=== PATIENT | female | born 1955 | race African-American/Black ===

== ENCOUNTER 2017-03-02 08:44 | Outpatient (CLI) | payer OTHER ==
--- NOTE | 2017-03-02 10:02 | ULT ---
RIGHT UPPER QUADRANT ULTRASOUND: Date: 03/02/17 HISTORY: Epigastric pain. FINDINGS: The liver demonstrates normal echogenicity consistent without mass or biliary ductal dilatation. No g allstones, gallbladder wall thickening, or pericholecystic fluid is seen. The common duct measures 5. 0 mm in diameter. The pancreas and right kidney appear normal. No free fluid is seen in Morison's danny ch. IMPRESSION: Normal exam. POS: [facility]
--- NOTE | 2017-03-02 11:13 | CT ---
CT ABDOMEN AND PELVIS WITH CONTRAST: Date: 03/02/17 HISTORY: Epigastric pain. COMPARISON: Ultrasound from same date. FINDINGS: There are mild atelectatic changes in the lung bases. No pericardial effusion. No dilated loops of large or small bowel. Streak artifact limits evaluation of the lower abdomen. Aortoiliac contour is normal. No hydronephrosis. The liver and gallbladder are unremarkable. Too smal l to characterize hypodensities superior pole left kidney. Spleen is unremarkable, as well as the mcadams creas. No peripancreatic fluid. There is extensive diverticular disease of the sigmoid colon without active inflammation. There are m ildly distended right-sided gonadal veins. Appendix is visualized and is normal. Severe degenerative disease of the right hip joint with subchondral formation, as well as a subchondr al fracture of the right femoral head with impaction and lucency around the fracture suggesting that this fracture is unstable. Posterior spinal fusion L3-L5. IMPRESSION: 1. No acute inflammatory process in abdomen or pelvis. 2. Normal appendix. 3. Severe degenerative disease of the right hip with a subchondral fracture of the right femoral hea d, with resorption around the fracture line and likely fluid suggesting this fracture may be unstabl e. Orthopedic consultation is recommended. POS: [facility]
[2017-03-02] MEDS ORDERED: Iopamidol 370 76% 100 ML VIAL ONE (12:21)
== END 2017-03-02 08:45 | disposition home or self-care (01) ==
LOC: CT 08:44
PROVIDERS: ATTEND Specialist
DX: R10.13 Epigastric pain (principal); M16.11 Unilateral primary osteoarthritis, right hip; S72.051A Unspecified fracture of head of right femur, initial encounter for closed fracture
CPT/HCPCS: 36415; 74177; 76705; 82565

== ENCOUNTER 2017-05-16 12:09 | Outpatient (CLI) | payer OTHER ==
[2017-05-16 13:53] LABS: #Eosinphils 0.1 thou/uL (0.0-0.7); #Lymphocytes 2.1 thou/uL (1.20-3.40); #Monocytes 0.8 thou/uL (0.11-0.59); %Basophils 0.3 % (0.0-1.0); %Eosinophils 1.5 % (0.0-10.0); %Lymphocytes 25.7 % (21.0-51.0); %Monocytes 10.4 % (0.0-10.0); %Neutrophils 62.1 % (42.0-75.0); Hemoglobin 13.9 g/dL (12.0-16.0); Mean Corpuscular HGB CONC 32.2 g/dL (32.0-36.0); Mean Corpuscular Hemoglobin 27.9 pg (27.0-31.0); Mean Corpuscular Volume 86.6 fl (81.0-99.0); Mean Platelet Volume 7.6 fL (7.4-10.4); Platelet Count 323 thou/uL (130-400); RBC Distribution Width 13.8 % (11.5-14.5); Red Blood Cell (RBC) Count 4.98 mill/uL (4.20-5.40); White Blood Cell (WBC) Count 8.1 thou/uL (4.8-10.8)
[2017-05-16 13:55] LABS: Bilirubin Negative (Negative); Blood, Urine Negative (Negative); Clarity CLOUDY (Clear); Glucose, Urine (Dipstick) Negative (Negative); Leukocyte Small (Negative); Nitrite Negative (Negative); Protein, Urine (Dipstick) Trace mg/dL (Neg-Trace); Specific Gravity, Urine 1.033 (1.002-1.036)
[2017-05-16 13:57] LABS: Bacteria/HPF 3+ HPF (None Seen); Hyaline Casts/LPF 7-10 HYALINE CAST LPF (0-3 Hyaline); Squamous Epithelial 21-50 HPF (0-3); WBC/HPF 21-50 HPF (0-3)
[2017-05-16 13:58] LABS: INR-International Normal Ratio 1.1; PTT 33.2 SEC (22.9-36.1); Prothrombin Time 13.9 SEC (12.0-14.7)
--- NOTE | 2017-05-16 14:02 | RAD ---
2 VIEW CHEST: Date: 05/16/17 HISTORY: Preoperative evaluation. FINDINGS: Lung humphrey are clear. No infiltrate. Heart and mediastinum unremarkable. Osseous structures are unre markable. IMPRESSION: No acute findings. POS: [facility]
[2017-05-16 14:06] LABS: RBC/HPF None Seen HPF (0-3)
[2017-05-16 14:17] LABS: Anion Gap 9 mmol/L (10-20); BUN (Urea Nitrogen) 14 mg/dL (9.8-20.1); Calc. Creatinine Clearance 0 mL/min (70-130); Calcium 9.8 mg/dL (7.8-10.44); Carbon Dioxide 31 mmol/L (22-29); Chloride 99 mmol/L (98-107); Estimated GFR-MDRD 69; Glucose 136 mg/dL (70-105); Potassium 3.2 mmol/L (3.5-5.1); Sodium 136 mmol/L (136-145)
--- NOTE | 2017-05-18 17:36 | EKG ---
Test Reason : Blood Pressure : / mmHG Vent. Rate : 095 BPM Atrial Rate : 095 BPM P-R Int : 172 ms QRS Dur : 090 ms QT Int : 364 ms P-R-T Axes : 063 -20 049 degrees QTc Int : 457 ms Normal sinus rhythm Possible Inferior infarct , age undetermined Abnormal ECG When compared with ECG of 21-SEP-2007 06:49, Borderline criteria for Inferior infarct are now Present Confirmed by DR. Delgado PANTOJA ([id number]) on 05/18/2017 5:36:32 PM Referred By: RONNI Confirmed By:DR. Delgado PANTOJA
== END 2017-05-16 12:10 | disposition home or self-care (01) ==
LOC: LABBT 12:09
PROVIDERS: ATTEND Orthopaedic Surgery
DX: Z01.818 Encounter for other preprocedural examination (principal); M16.11 Unilateral primary osteoarthritis, right hip
CPT/HCPCS: 71046; 80048; 81001; 85025; 85610; 85730; 87081; 93005; 93010

== ENCOUNTER 2017-05-16 13:00 | Inpatient (IN) | payer OTHER ==
[2017-06-13] MEDS ORDERED: CEFAZOLIN/Water 2 GM/20 ML SYRINGE ONE (07:06)
[2017-06-13] MEDS ORDERED: Vancomycin HCl 1.5 GM, Admixture Fee 1 EACH in Sodium Chloride 0.9% 250 ML 300 ML IVPB SCH (07:15)
[2017-06-13] MEDS ORDERED: Midazolam HCl 2 mg/2 ml Vial ONE ×2 (07:31→09:02)
[2017-06-13] MEDS ORDERED: Fentanyl 100 MCG/2 ML VIAL ONE ×5 (07:31→11:17)
[2017-06-13] MEDS ORDERED: Fentanyl 100 MCG/2 ML VIAL SLOW IVP PRN ×2 (08:42)
[2017-06-13] MEDS ORDERED: traMADol HCl 50 MG TAB PO PRN (08:42)
[2017-06-13] MEDS ORDERED: diphenhydrAMINE 25 MG CAP PO PRN ×2 (08:42→11:13)
[2017-06-13] MEDS ORDERED: Ondansetron HCl/PF 4 MG/2 ML Vial IVP PRN ×3 (08:42→11:13)
[2017-06-13] MEDS ORDERED: Promethazine HCl 25 MG/ML VIAL IM PRN ×3 (08:42→11:13)
[2017-06-13] MEDS ORDERED: Acetaminophen 325 MG TAB PO PRN (08:42)
[2017-06-13] MEDS ORDERED: Zolpidem Tartrate 5 MG TAB PO PRN ×2 (08:42→11:13)
[2017-06-13] MEDS ORDERED: HYDROcodone/Acetaminophen 10/325 mg Tablet PO PRN ×2 (08:42)
[2017-06-13] MEDS ORDERED: Tranexamic Acid 1,000 MG in Sodium Chloride 0.9% 100 ML IVPB SCH (08:45)
[2017-06-13] MEDS ORDERED: Gabapentin 400 MG CAP PO SCH (09:00)
[2017-06-13] MEDS ORDERED: Promethazine HCl 25 MG/ML VIAL SLOW IVP PRN (10:10)
--- NOTE | 2017-06-13 10:49 | OP ---
PREOPERATIVE DIAGNOSIS: Degenerative joint disease of right hip. POSTOPERATIVE DIAGNOSIS: Degenerative joint disease of right hip. SURGICAL PROCEDURE: Right total hip arthroplasty using a [place] Accolade #2 stem, a PSL size 50 cup , 36 mm liner and a 36 mm standard ceramic head. VP PRODUCTION: [place] PA-C PROCEDURE IN DETAIL: After informed consent was obtained in the preoperative holding area, the patie nt was taken to the operative suite where general anesthesia was induced. The patient was then posit ioned in the lateral decubitus position. The hip was then prepped and draped in usual sterile fashio n. The patient received preoperative antibiotics. Prior to incision, time-out was called and all me mbers of the surgical team agreed upon site, surgeon, and patient. After this, a longitudinal incisi on was made directly over the trochanter, noted by palpation extending 2 fingerbreadths above and bel ow the trochanter. The deeper subcutaneous layer was undermined with Bovie electrocautery. The ilio tibial band was encountered and incised sharply and the plane below this was developed bluntly. [facility] was placed to hold this opened. The lateral aspect of the trochanter and the abduct or muscles were encountered and then reflected anteriorly off the trochanter using Bovie electrocaute ry. Once this was completed, the anterior capsule was then encountered and identified and copious ca psulotomy was carried out, exposing the femoral neck and head. Dislocation maneuver was then performe d and an in situ provisional neck cut was then made using the oscillating saw. Attention was then tu rned to acetabular preparation and sequential reaming was carried out up to the appropriate diameter and a trial was then malleted into place with good firm resistance and no pullout. The permanent allyssa tabular shell was then malleted squarely into place, as was the appropriate liner. Once completed, t he wound was copiously irrigated and attention was then turned to femoral preparation. Flexion and ex ternal rotation was performed of the exposed thigh and femoral elevators were then placed at the prox imal aspect of the wound. Canal finder was used to establish the length of the canal and sequential reaming was carried out, followed by broaching. Once the appropriate stability was established with the trial broaches with both flexion, extension and rotational stability, we did trial with neutral a nd 2 mm offset incremental necks. Once the appropriate size was decided upon, with good stability no lonnie with flexion, extension, internal and external rotation and shuck being negative, we removed the femoral trial broach and malletted into place the permanent prosthesis with good firm fit, which was also stable to rotation. Again, the hip felt very stable to flexion, extension, internal and externa l rotation. Leg lengths appeared near anatomic clinically and we were quite happy with prosthesis pl acement. Copious irrigation was then carried out through the entirety of the wound. Primary closure of the abductors was accomplished with interrupted #2 Vicryl [id number] stitches and the IT ban d was then closed with interrupted #2 Vicryl, oversewn with a #2 running barbed Quill stitch. Subcut aneous fascia was closed with running barbed Quill stitch and a subcuticular Monocryl barbed Quill st itch was used for skin closure and augmented with skin cement. A sterile dressing was applied. The p rocedure was terminated without any complication. All counts were correct. The patient was awakened in the operative suite and taken to the recovery room in stable condition.
[2017-06-13] MEDS ORDERED: Ketorolac Tromethamine 30 MG/ML VIAL IVP PRN (11:13)
[2017-06-13] MEDS ORDERED: Naloxone HCl 0.4 mg/ml Vial IV PRN (11:13)
[2017-06-13] MEDS ORDERED: Fentanyl 5000 MCG/250 ML CADD IV PRN (11:13)
[2017-06-13] MEDS ORDERED: diphenhydrAMINE 50 MG/ML VIAL IM/IV PRN (11:13)
[2017-06-13] MEDS ORDERED: Bupivacaine HCl 0.5%/Epinephrine 1:200,000/PF 30 ml Vial ONE (11:16)
[2017-06-13] MEDS ORDERED: Dexamethasone 20 MG/5 ML VIAL ONE (11:48)
[2017-06-13] MEDS ORDERED: Lidocaine 1% PF 5 ML VIAL ONE (11:48)
[2017-06-13] MEDS ORDERED: Propofol 200 MG/20 ML VIAL ONE (11:48)
[2017-06-13] MEDS ORDERED: PHENYLEPHRINE-NS 100 MCG/ML 10 ML SYRINGE ONE (11:48)
[2017-06-13] MEDS ORDERED: Ondansetron HCl/PF 4 MG/2 ML Vial ONE (11:48)
[2017-06-13] MEDS ORDERED: Glycopyrrolate 0.2 MG/ML 5 ML SYRINGE ONE (11:48)
[2017-06-13] MEDS ORDERED: fentaNYL Citrate/PF 2,000 MCG in Sodium Chloride 0.9% 60 ML IV PRN (12:00)
--- NOTE | 2017-06-13 12:15 | RAD ---
RIGHT HIP 2 VIEWS: Date: 06/13/17 INDICATION: Postop evaluation from hip replacement. FINDINGS/IMPRESSION: Right hip prosthesis has been placed. Components appear in adequate position and alignment. POS: [facility]
[2017-06-13] MEDS: Acetaminophen 1,000 MG in Premix Bag 1 BAG IVPB PRN ×2 (13:22→21:29)
[2017-06-13] MEDS ORDERED: Ketorolac Tromethamine 30 MG/ML VIAL IVP SCH (14:00)
[2017-06-13] MEDS: Sodium Chloride 0.9% 1,000 ML IV SCH ×2 (14:27→21:16)
[2017-06-13] MEDS: Multivitamin W/ Minerals 1 TAB PO SCH (14:29)
[2017-06-13] MEDS: Venlafaxine XR 37.5 MG CAP PO SCH (14:29)
[2017-06-13] MEDS: Senokot S 8.6-50 MG TAB PO SCH ×2 (14:29→20:00)
[2017-06-13] MEDS: Aspirin 325 MG TAB PO SCH ×2 (14:29→20:00)
[2017-06-13] MEDS: Gabapentin 300 MG CAP PO SCH ×3 (14:30→20:01)
--- NOTE | 2017-06-13 14:34 | PDOC.PN ---
- Subjective Encounter Start Date: 06/13/17 Encounter Start Time: 14:30 Subjective: no sob or chest pain -: was snoring heavy when I entered room -: no pain in hip now, its still numb - Objective MAR Reviewed: Yes Vital Signs & Weight: Vital Signs (12 hours) Temp Pulse Resp BP Pulse Ox 06/13/17 12:25 97.7 F 91 20 143/85 H 93 L Weight Weight 231 lb Phys Exam - Physical Examination HEENT: PERRLA, sclera anicteric dry mucosa Neck: no JVD, supple Respiratory: no wheezing, no rales Cardiovascular: RRR, no significant murmur Gastrointestinal: soft, non-tender, positive bowel sounds Musculoskeletal: pulses present right lat hip in dressing Neurological: non-focal, moves all 4 limbs Psychiatric: A&O x 3 Dx/Plan (1) s/p right hip arthroplasty Status: Acute (2) HTN (hypertension) Code(s): I10 - ESSENTIAL (PRIMARY) HYPERTENSION Status: Chronic Qualifiers: Hypertension type: essential hypertension Qualified Code(s): I10 - Essential (primary) hypertension (3) DM type 2 (diabetes mellitus, type 2) Status: Chronic Qualifiers: Diabetes mellitus sluice tender insulin use: without fdc use Diabetes mellitus complication status: with unspecified complications Qualified Code(s) : E11.8 - Type 2 diabetes mellitus with unspecified complications (4) Dyslipidemia Code(s): E78.5 - HYPERLIPIDEMIA, UNSPECIFIED Status: Chronic (5) GERD (gastroesophageal reflux disease) Code(s): K21.9 - GASTRO-ESOPHAGEAL REFLUX DISEASE WITHOUT ESOPHAGITIS Status: Chronic Qualifiers: Esophagitis presence: without esophagitis Qualified Code(s): K21.9 - Gastro -esophageal reflux disease without esophagitis (6) Obesity (BMI 30-39.9) Code(s): E66.9 - OBESITY, UNSPECIFIED Status: Chronic (7) NATE (obstructive sleep apnea) Code(s): G47.33 - OBSTRUCTIVE SLEEP APNEA (ADULT) (PEDIATRIC) Status: Suspected - Plan continue lipitor, glipizide, venlafaxine and nexium -: on asp bid for dvt prophylaxis -: fentanyl, marcaine and toradol prn for pain -: will need outpt sleep study (has insurance issues scheduling one) -: reduce gabapentin dose tid, dc hctz for now * . last stress test at [facility] in 2017 was -ve per patient. PCP: Dr.Chanseya Fuller will f/u Review of Systems - Medications/Allergies Allergies/Adverse Reactions: Allergies Allergy/AdvReac Type Severity Reaction Status Date / Time codeine Allergy Verified 05/16/17 12:35 gadobenate dimeglumine AdvReac Mild Emesis Verified 05/16/17 12:32 [From Multihance] Medications: Current Medications Acetaminophen (Tylenol) 650 mg PO Q4H PRN PRN Reason: MADSEN/ T > 101F; Mild Pain (1-3) Aspirin (Aspirin) 325 mg PO BID [facility] Last Admin: 06/13/17 14:29 Dose: Not Given Atorvastatin Calcium (Lipitor) 20 mg PO HS [facility] Cefazolin Sodium (Ancef) 2 gm SLOW IVP 0800,1600,2359 [facility] Stop: 06/14/17 00:00 Diphenhydramine HCl (Benadryl) 25 mg IM/IV Q3H PRN PRN Reason: Itching Diphenhydramine HCl (Benadryl) 25 mg PO Q3H PRN PRN Reason: Itching Ferrous Gluconate (Fergon) 324 mg PO BID [facility] Gabapentin (Neurontin) 300 mg PO TID [facility] Last Admin: 06/13/17 14:30 Dose: Not Given Glipizide (Glucotrol Xl) 2.5 mg PO DAILY [facility] Last Admin: 06/13/17 14:29 Dose: Not Given Sodium Chloride (Normal Saline 0.9%) 1,000 mls @ 100 mls/hr IV .Q10H [facility] Last Admin: 06/13/17 14:27 Dose: Not Given Acetaminophen 1,000 mg/ Device 100 mls @ 400 mls/hr IVPB Q6H PRN PRN Reason: Fever/Mild Pain Stop: 06/15/17 11:13 Last Admin: 06/13/17 13:22 Dose: 100 mls Fentanyl Citrate 2,000 mcg/ (Sodium Chloride) 100 mls @ 0 mls/hr IV INF PRN; As Directed PRN Reason: Pain Iron/Minerals/Multivitamins (Theragran M) 1 tab PO DAILY [facility] Last Admin: 06/13/17 14:29 Dose: Not Given Ketorolac Tromethamine (Toradol) 15 mg IVP Q6H PRN PRN Reason: Moderate Pain 4-6 Stop: 06/16/17 11:14 Naloxone HCl (Narcan) 0.2 mg IV Q5MIN PRN PRN Reason: RR <8 or pt obtun/unarousable Ondansetron HCl (Zofran) 4 mg IVP Q6H PRN PRN Reason: Nausea/Vomiting Pantoprazole Sodium (Protonix) 40 mg PO DAILY [facility] Last Admin: 06/13/17 14:29 Dose: Not Given Promethazine HCl (Phenergan) 12.5 mg IM Q4H PRN PRN Reason: Nausea/Vomiting Senna/Docusate Sodium (Senokot S) 2 tab PO BID [facility] Last Admin: 06/13/17 14:29 Dose: Not Given Sodium Chloride (Flush - Normal Saline) 10 ml IVF PRN PRN PRN Reason: Saline Flush Venlafaxine HCl (Effexor Xr) 37.5 mg PO DAILY [facility] Last Admin: 06/13/17 14:29 Dose: Not Given Zolpidem Tartrate (Ambien) 5 mg PO HSPRN PRN PRN Reason: Insomnia
[2017-06-13] MEDS: CEFAZOLIN/Water 2 GM/20 ML SYRINGE SLOW IVP SCH ×2 (17:15→23:06)
[2017-06-13] MEDS ORDERED: Atorvastatin Calcium 20 MG TAB PO SCH (21:00)
[2017-06-13] MEDS ORDERED: Hydrochlorothiazide 25 MG TAB PO SCH (21:00)
[2017-06-14 03:46] LABS: Mean Corpuscular HGB CONC 32.7 g/dL (32.0-36.0); Mean Corpuscular Hemoglobin 28.4 pg (27.0-31.0); Mean Corpuscular Volume 86.7 fl (81.0-99.0); Platelet Count 286 thou/uL (130-400); RBC Distribution Width 14.1 % (11.5-14.5); Red Blood Cell (RBC) Count 4.22 mill/uL (4.20-5.40); White Blood Cell (WBC) Count 18.9 thou/uL (4.8-10.8)
[2017-06-14 04:01] LABS: Anion Gap 12 mmol/L (10-20); BUN (Urea Nitrogen) 15 mg/dL (9.8-20.1); Calc. Creatinine Clearance 118 mL/min (70-130); Carbon Dioxide 27 mmol/L (22-29); Chloride 101 mmol/L (98-107); Estimated GFR-MDRD 84; Glucose 181 mg/dL (70-105); Potassium 3.5 mmol/L (3.5-5.1); Sodium 136 mmol/L (136-145)
[2017-06-14] MEDS: Sodium Chloride 0.9% 1,000 ML IV SCH ×2 (05:51→16:15)
[2017-06-14] MEDS ORDERED: Albuterol Sulfate 1.25 MG/3 ML NEB NEB PRN (07:53)
[2017-06-14 08:55] VITALS: BP 124/68; TEMP 97.9
[2017-06-14] MEDS ORDERED: Ferrous Gluconate 324 MG TAB PO SCH (09:00)
[2017-06-14] MEDS: Aspirin 325 MG TAB PO SCH (09:18)
[2017-06-14] MEDS: Venlafaxine XR 37.5 MG CAP PO SCH (09:19)
[2017-06-14] MEDS: Multivitamin W/ Minerals 1 TAB PO SCH (09:19)
[2017-06-14] MEDS: Senokot S 8.6-50 MG TAB PO SCH (09:19)
--- NOTE | 2017-06-14 12:21 | PDOC.PN ---
- Subjective Encounter Start Date: 06/14/17 Encounter Start Time: 09:25 Subjective: is sitting in chair, no sob or palp or chest pain -: is working with PT -: amb to restroom and back this am - Objective MAR Reviewed: Yes Vital Signs & Weight: Vital Signs (12 hours) Temp Pulse Resp BP Pulse Ox 06/14/17 08:00 97.9 F 86 18 124/68 96 06/14/17 07:30 97.9 F 86 18 06/14/17 03:19 98.0 F 83 16 102/61 95 06/14/17 03:15 95 Weight Weight 231 lb Result Diagrams: 06/14/17 03:22 06/14/17 03:22 Additional Labs: Accuchecks 06/13/17 17:26 POC Glucose 230 H Phys Exam - Physical Examination HEENT: PERRLA, moist MMs Neck: no JVD, supple Respiratory: no wheezing, no rales Cardiovascular: RRR, no significant murmur Gastrointestinal: soft, non-tender, positive bowel sounds Musculoskeletal: no edema, pulses present Neurological: non-focal, moves all 4 limbs Psychiatric: A&O x 3 Dx/Plan (1) s/p right hip arthroplasty Status: Acute (2) HTN (hypertension) Code(s): I10 - ESSENTIAL (PRIMARY) HYPERTENSION Status: Chronic Qualifiers: Hypertension type: essential hypertension Qualified Code(s): I10 - Essential (primary) hypertension (3) DM type 2 (diabetes mellitus, type 2) Status: Chronic Qualifiers: Diabetes mellitus halfway insulin use: without joint terminal attack controller use Diabetes mellitus complication status: with unspecified complications Qualified Code(s) : E11.8 - Type 2 diabetes mellitus with unspecified complications (4) Dyslipidemia Code(s): E78.5 - HYPERLIPIDEMIA, UNSPECIFIED Status: Chronic (5) GERD (gastroesophageal reflux disease) Code(s): K21.9 - GASTRO-ESOPHAGEAL REFLUX DISEASE WITHOUT ESOPHAGITIS Status: Chronic Qualifiers: Esophagitis presence: without esophagitis Qualified Code(s): K21.9 - Gastro -esophageal reflux disease without esophagitis (6) Obesity (BMI 30-39.9) Code(s): E66.9 - OBESITY, UNSPECIFIED Status: Chronic (7) NATE (obstructive sleep apnea) Code(s): G47.33 - OBSTRUCTIVE SLEEP APNEA (ADULT) (PEDIATRIC) Status: Suspected - Plan hemostable -: continue asp, lipitor, glipizide, venlafaxine -: i.spirometry, nebs prn -: pain mgmt per ortho advice * . Review of Systems - Medications/Allergies Allergies/Adverse Reactions: Allergies Allergy/AdvReac Type Severity Reaction Status Date / Time codeine Allergy Verified 05/16/17 12:35 gadobenate dimeglumine AdvReac Mild Emesis Verified 05/16/17 12:32 [From Multihance] Medications: Current Medications Acetaminophen (Tylenol) 650 mg PO Q4H PRN PRN Reason: MADSEN/ T > 101F; Mild Pain (1-3) Albuterol Sulfate (Albuterol Sulfate) 1.25 mg NEB [id number] PRN PRN Reason: Wheezing Aspirin (Aspirin) 325 mg PO BID [facility] Last Admin: 06/14/17 09:18 Dose: 325 mg Atorvastatin Calcium (Lipitor) 20 mg PO HS [facility] Last Admin: 06/13/17 20:03 Dose: 20 mg Diphenhydramine HCl (Benadryl) 25 mg IM/IV Q3H PRN PRN Reason: Itching Diphenhydramine HCl (Benadryl) 25 mg PO Q3H PRN PRN Reason: Itching Ferrous Gluconate (Fergon) 324 mg PO BID [facility] Last Admin: 06/14/17 09:18 Dose: 324 mg Gabapentin (Neurontin) 300 mg PO TID [facility] Last Admin: 06/13/17 20:01 Dose: 300 mg Glipizide (Glucotrol Xl) 2.5 mg PO DAILY [facility] Last Admin: 06/14/17 09:19 Dose: 2.5 mg Sodium Chloride (Normal Saline 0.9%) 1,000 mls @ 100 mls/hr IV .Q10H [facility] Last Admin: 06/14/17 05:51 Dose: Not Given Acetaminophen 1,000 mg/ Device 100 mls @ 400 mls/hr IVPB Q6H PRN PRN Reason: Fever/Mild Pain Stop: 06/15/17 11:13 Last Admin: 06/13/17 21:29 Dose: 100 mls Fentanyl Citrate 2,000 mcg/ (Sodium Chloride) 100 mls @ 0 mls/hr IV INF PRN; As Directed PRN Reason: Pain Iron/Minerals/Multivitamins (Theragran M) 1 tab PO DAILY [facility] Last Admin: 06/14/17 09:19 Dose: 1 tab Ketorolac Tromethamine (Toradol) 15 mg IVP Q6H PRN PRN Reason: Moderate Pain 4-6 Stop: 06/16/17 11:14 Last Admin: 06/13/17 21:25 Dose: 15 mg Naloxone HCl (Narcan) 0.2 mg IV Q5MIN PRN PRN Reason: RR <8 or pt obtun/unarousable Ondansetron HCl (Zofran) 4 mg IVP Q6H PRN PRN Reason: Nausea/Vomiting Pantoprazole Sodium (Protonix) 40 mg PO DAILY [facility] Last Admin: 06/14/17 09:19 Dose: 40 mg Promethazine HCl (Phenergan) 12.5 mg IM Q4H PRN PRN Reason: Nausea/Vomiting Senna/Docusate Sodium (Senokot S) 2 tab PO BID [facility] Last Admin: 06/14/17 09:19 Dose: 2 tab Sodium Chloride (Flush - Normal Saline) 10 ml IVF PRN PRN PRN Reason: Saline Flush Venlafaxine HCl (Effexor Xr) 37.5 mg PO DAILY [facility] Last Admin: 06/14/17 09:19 Dose: 37.5 mg Zolpidem Tartrate (Ambien) 5 mg PO HSPRN PRN PRN Reason: Insomnia
[2017-06-14 15:00] VITALS: BMI 38.4
[2017-06-14] MEDS: Gabapentin 300 MG CAP PO SCH (16:15)
--- NOTE | 2017-06-15 16:20 | DIS ---
DATE OF ADMISSION: 06/13/2017 DATE OF DISCHARGE: 06/14/2017 DISCHARGE DISPOSITION: To home. PRIMARY DISCHARGE DIAGNOSES: Patient is status post right total hip arthroplasty. SECONDARY DISCHARGE DIAGNOSES: Hypertension, diabetes mellitus type 2, gastroesophageal reflux disease, dyslipidemia, likely obstructive sleep apnea. PROCEDURES DONE DURING HOSPITALIZATION: Patient has had right total hip arthroplasty done on 06/13/[address] Huertas. Discharge H&H was 12 and 36 with platelet count of 286. Discharge BUN and creatinine is 15 and 0.8. DISCHARGE MEDICATIONS: Patient to continue aspirin 81 mg twice daily for DVT prophylaxis, Tylenol #3 p.r.n. for pain, Lipitor 20 mg p.o. at bedtime, Nexium 40 mg p.o. daily, gabapentin 4 times daily, glipizide extended release 2.5 mg p.o. daily, hydrochlorothiazide 25 mg daily, venlafaxine extended release 37.5 mg p.o. daily. ALLERGIES: Allergic to CODEINE. DISCHARGE PLAN: Patient to follow up with Dr. Huertas as advised and primary care physician in 1 week. BRIEF COURSE DURING HOSPITALIZATION: Patient initially got admitted on 2017 for elective right total hip arthroplasty. This was done by Dr. Huertas on the . Postop [facility] physicians were consulted for comanagement of medical issues. The patient has remained hemodynamically stable post-surgery. She is participating in physical therapy. The patient has underlying sleep apnea and would benefit from sleep study and possible CPAP use. She has been advised to check fingerstick glucose twice daily and record on a sheet of paper to follow up with primary care physician in 1 week. The patient needs to continue aspirin for post-hip deep venous thrombosis prophylaxis as prescribed by Orthopedic Surgery. Please see a [id number] documentation on [facility] for the day of discharge. [facility]
== END 2017-06-14 17:58 | disposition home or self-care (01) | DRG 470 ==
LOC: SJJU 06-13 06:04
PROVIDERS: ADMIT Orthopaedic Surgery; ATTEND Orthopaedic Surgery
PROC: 0SR903Z Replacement of Right Hip Joint with Ceramic Synthetic Substitute, Open Approach (ICD-10-PCS; principal; 2017-06-13)
DX: M16.11 Unilateral primary osteoarthritis, right hip (principal); E66.9 Obesity, unspecified; E11.9 Type 2 diabetes mellitus without complications; I10 Essential (primary) hypertension; E78.5 Hyperlipidemia, unspecified; Z68.38 Body mass index [BMI] 38.0-38.9, adult; G47.33 Obstructive sleep apnea (adult) (pediatric); K21.9 Gastro-esophageal reflux disease without esophagitis; Z79.82 Long term (current) use of aspirin; Z88.5 Allergy status to narcotic agent; M06.9 Rheumatoid arthritis, unspecified; Z79.84 Long term (current) use of oral hypoglycemic drugs; Z98.1 Arthrodesis status
CPT/HCPCS: 36415; 36416; 80048; 85027; 86850; 86900; 86901; 86905; 86922; G8978-GP-CL; G8979-GP-CI; G8987-GO-CJ; G8988-GO-CI; J0131; J0670; J1100; J1885; J2001; J2250; J2405; J2704; J3010; J3370; J7050

== ENCOUNTER 2017-08-23 19:30 | Outpatient (CLI) | payer OTHER | END 2017-08-23 19:31 | disposition home or self-care (01) | LOC: SLEEPLAB 19:30 | PROVIDERS: ATTEND Family Medicine | DX: G47.9 Sleep disorder, unspecified (principal); R06.83 Snoring; I10 Essential (primary) hypertension; E11.9 Type 2 diabetes mellitus without complications; G47.33 Obstructive sleep apnea (adult) (pediatric) | CPT/HCPCS: 95811 ==

== ENCOUNTER 2017-10-04 12:59 | Emergency (ER) | payer OTHER ==
[2017-10-04] MEDS ORDERED: Cyclobenzaprine 10 MG TAB ONE (13:48)
[2017-10-04] MEDS ORDERED: HYDROcodone/Acetaminophen 10/325 mg Tablet ONE (13:49)
--- NOTE | 2017-10-04 14:11 | RAD ---
TWO VIEW CHEST: COMPARISON: 05/16/17. INDICATION: Right rib pain. FINDINGS: There is no evidence of consolidation, effusion, or pneumothorax. No free air beneath the hemidiaphr agms. The cardiomediastinal silhouette is stable, and within normal limits of size. No acute osseou s pathology evident. IMPRESSION: Stable chest. POS: [facility]
== END 2017-10-04 15:04 | disposition home or self-care (01) ==
LOC: ERS 12:59
DX: M54.42 Lumbago with sciatica, left side (principal); R05 Cough; I10 Essential (primary) hypertension; E78.1 Pure hyperglyceridemia; M19.90 Unspecified osteoarthritis, unspecified site; F41.9 Anxiety disorder, unspecified; F31.9 Bipolar disorder, unspecified; Z79.899 Other long term (current) drug therapy; Z79.82 Long term (current) use of aspirin
CPT/HCPCS: 71046

== ENCOUNTER 2018-10-10 10:05 | Emergency (ER) | payer OTHER ==
[2018-10-10] MEDS ORDERED: ISOVUE-370 76%-LOCM 1 ML ONE (10:16)
[2018-10-10] MEDS ORDERED: Morphine 4 MG/ML VIAL ONE (11:15)
[2018-10-10] MEDS ORDERED: Ondansetron PF 4 MG/2 ML Vial ONE (11:15)
[2018-10-10 11:18] LABS: Bilirubin Negative (Negative); Blood, Urine Negative (Negative); Clarity Clear (Clear); Glucose, Urine (Dipstick) Normal (Negative); Leukocyte 75 Leu/uL (Negative); Mucous/LPF Rare LPF (<2+); Nitrite Negative (Negative); Protein, Urine (Dipstick) Negative (Neg-Trace); RBC/HPF 0-3 HPF (0-3); Squamous Epithelial 0-3 HPF (0-3); Urobilinogen Normal mg/dL (Less than 2)
[2018-10-10 11:27] LABS: Bacteria/HPF Rare-Few HPF (None Seen)
[2018-10-10 11:34] LABS: #Basophils 0.1 thou/uL (0.0-0.2); #Eosinphils 0.2 thou/uL (0.0-0.7); #Lymphocytes 2.2 thou/uL (1.20-3.40); #Monocytes 0.8 thou/uL (0.11-0.59); #Neutrophils 6.1 thou/uL (1.40-6.50); %Basophils 0.6 % (0.0-1.0); %Eosinophils 1.7 % (0.0-10.0); %Lymphocytes 23.4 % (21.0-51.0); %Monocytes 8.4 % (0.0-10.0); %Neutrophils 65.9 % (42.0-75.0); Hemoglobin 13.3 g/dL (12.0-16.0); Mean Corpuscular HGB CONC 32.2 g/dL (32.0-36.0); Mean Corpuscular Volume 87.1 fL (78.0-98.0); Mean Platelet Volume 8.3 fL (7.4-10.4); Platelet Count 332 thou/uL (130-400); RBC Distribution Width 14.3 % (11.5-14.5); Red Blood Cell (RBC) Count 4.73 mill/uL (4.20-5.40); White Blood Cell (WBC) Count 9.2 thou/uL (4.8-10.8)
[2018-10-10] MEDS ORDERED: cefTRIAXone\\ROCEPHIN 1 GM VIAL ONE (12:26)
[2018-10-10 12:47] LABS: Albumin 3.7 g/dL (3.4-4.8)
[2018-10-10 12:48] LABS: Chloride 102 mmol/L (98-107); Potassium 3.3 mmol/L (3.5-5.1); Sodium 140 mmol/L (136-145)
[2018-10-10 12:49] LABS: Calcium 9.7 mg/dL (7.8-10.44); Glucose 95 mg/dL (80-115)
[2018-10-10 12:50] LABS: Globulin 3.2 g/dL (2.4-3.5); Protein, Total 6.9 g/dL (6.0-8.3)
[2018-10-10 12:51] LABS: Anion Gap 11 mmol/L (10-20); Bilirubin, Total 0.5 mg/dL (0.2-1.2); Carbon Dioxide 30 mmol/L (23-31)
[2018-10-10 12:52] LABS: Alkaline Phosphatase 73 U/L (40-150); CRP (Inflammatory) 0.81 mg/dL (= or < 0.5)
[2018-10-10 12:53] LABS: Calc. Creatinine Clearance 0 mL/min (70-130); Estimated GFR-MDRD 77
[2018-10-10 12:54] LABS: BUN (Urea Nitrogen) 14 mg/dL (9.8-20.1)
[2018-10-10 12:55] LABS: ALT (SGPT) 20 U/L (8-55); AST (SGOT) 21 U/L (5-34)
--- NOTE | 2018-10-10 14:09 | CT ---
CT LUMBAR SPINE WITH CONTRAST: 10/10/18 HISTORY: 63-year-old female with chronic low back pain and sciatica. FINDINGS: There are five lumbar type vertebrae. Vertebral body heights are maintained. No scoliosis or high gra de spondylolisthesis at any level. There are bilateral pedicle screws at L3, L4, and L5. No evidence of hardware loosening. Graft material in L3-4 and L4-5 intervertebral disc spaces. 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 Disc space aliyah rowing at L3-4 and L4-5. There is no abnormal enhancement, mass, or abscess in the perivertebral spaces. There is fat strandin g with irregular, amorphous soft tissue density material in the superficial fat posterior to the dors al lumbar fascia, probably representing postsurgical scar tissue. Contrast enhanced CT has low sensit ivity for the detection of pathology within the spinal canal. MRI with and without contrast would be better suited for that. Findings by individual levels are as follows: T12-L1: Normal. L1-2: Essentially normal. L2-3: Mild bilateral facet DJD. Otherwise normal. L3-4: No high grade central stenosis or high grade right neural foraminal stenosis. There is encroach ment upon left neural foramen by small, partially calcified mass which is probably a partially calcif ied disc herniation, causing moderate left neural foraminal stenosis, and superiorly displacing the e xiting left L3 nerve root. Ankylosis of bilateral facet joints. L4-5: No high grade bony central spinal canal stenosis. Moderate bilateral bony neural foraminal sten osis. Ankylosis of bilateral facet joints. L5-S1: Moderate bilateral neural foraminal stenosis, right greater than left. Mild diffuse disc bulg e abuts the bilateral S1 nerve roots. Mild central spinal canal stenosis. Thickening of ligamentum fl avum. Moderate to severe bilateral facet DJD, left greater than right. IMPRESSION: 1. Status post posterior lumbar interbody fusion with hardware at L3-4-5. 2. High grade facet osteoarthrosis at L5-S1 bilaterally. 3. Neural foraminal stenosis of varying degrees. 4. This includes left lateral, foraminal partially calcified disc herniation at L3-4. 5. No severe central spinal canal stenosis at any level. POS: [facility]
== END 2018-10-10 15:00 | disposition home or self-care (01) ==
LOC: ERS 10:05
DX: N39.0 Urinary tract infection, site not specified (principal); M54.5 Low back pain; E78.2 Mixed hyperlipidemia; I10 Essential (primary) hypertension; F41.9 Anxiety disorder, unspecified; F31.9 Bipolar disorder, unspecified
CPT/HCPCS: 36415; 36416; 72132; 80053; 81003; 81015; 83605; 83690; 85025; 85652; 86140; 87040; 87077; 87086; 87186; 96361; 96374; 96375; J0696; J2270; J2405; Q9966

== ENCOUNTER 2019-01-28 12:13 | Emergency (ER) | payer OTHER | END 2019-01-28 12:45 | disposition home or self-care (01) | LOC: ERS 12:13 | DX: S16.1XXA Strain of muscle, fascia and tendon at neck level, initial encounter (principal); I10 Essential (primary) hypertension; V89.2XXA Person injured in unspecified motor-vehicle accident, traffic, initial encounter | CPT/HCPCS: 99283 ==